=== PATIENT | female | born 1970 | race Two or more races ===

== ENCOUNTER → 2017-03-06 | Outpatient (CLI) | payer OTHER ==
--- NOTE | ~2017-03-06 | MY11 ---
[facility] A Service of [facility] & [facility] RADIOLOGY TEXT RESULTS PATIENT: JADYN HAY LOCATION: [facility] : 66 UNIT #: [id number] AGE: [address]: RAY PICKENS APRN SEX: F ORDER DR: [id number] [facility] [address] [place], [place] [address] [id number] O MR#: [id number] Acc #: [id number] NAME: JADYN HAY : 1970 SEX: F STUDY DATE/TIME: 03/06/2017 12:45 UNIT: [facility] ROOM: STUDY DESCRIPTION: MY Mammogram Screening Dig Yonatan Attending Physician: Gil Pickens M.D. Ordering Physician: Gil Pickens M.D. Primary Care Physician: Jose Guadalupe Hays M.D. MEDICAL IMAGING REPORT This report is preliminary unless electronic signature is present EXAM Digital screening mammogram 03/06/2017 HISTORY 46-year-old woman. No risk elevation. Annual screen. COMPARISON Outside mammograms now available 06/26/2012, 07/02/2013, 06/24/2014, [facility] mobile. FINDINGS Digital imaging of each breast was completed utilizing a two-view examination of each breast in craniocaudal and mediolateral-oblique projections. Review and interpretation of digital mammograms include a second review in conjunction with FDA-approved CAD device. There is a normal parenchymal presentation bilaterally consistent with the patient's age. There are no breast masses imaged and no parenchymal asymmetry is visualized. There are no suspicious microcalcifications and I see no focal architectural disturbance. Intramammary lymph node left breast is stable IMPRESSION 1. Negative screening digital mammogram. One-year followup recommended. 2. Intramammary lymph node left breast is stable Patients over the age of 40 are entered into a reminder system with target due date for the next mammogram. A result letter will also be sent to the patient. BIRADS: [address] [facility] A Service of [facility] RADIOLOGY TEXT RESULTS PATIENT: JADYN HAY LOCATION: [facility] : 66 UNIT #: [id number] AGE: [address]: RAY PICKENS APRN SEX: F ORDER DR: Dictated by... Parveen Lion M.D. THIS IS AN ELECTRONICALLY VERIFIED REPORT Parveen Lion M.D. at 03/09/2017 2:25 PM JOS/helder TD: 03/09/2017 12:47 JOB #: [id number] MEDICAL IMAGING REPORT Page 1 of 1 COPY
== END | disposition home or self-care (01) ==
LOC: CWCC 12:25
DX: Z12.31 Encounter for screening mammogram for malignant neoplasm of breast (principal)
CPT/HCPCS: G0202